=== PATIENT | male | born 2000 | race Caucasian/White ===

== ENCOUNTER 2025-03-08 10:52 | Outpatient (RCR) | payer OTHER, SELFPAY | END 2025-03-14 23:59 | disposition home or self-care (01) | LOC: GPT 10:52 | PROVIDERS: Visit Provider Orthopaedic Surgery Sports Medicine | DX: Z98.890 Other specified postprocedural states (principal) | CPT/HCPCS: 97110; 97140; 97161 ==

== ENCOUNTER 2025-04-14 16:04 | Outpatient (RCR) | payer OTHER, SELFPAY | END 2025-04-14 23:59 | disposition home or self-care (01) | LOC: GPT 16:04 | PROVIDERS: Visit Provider Orthopaedic Surgery Sports Medicine | DX: M23.611 Other spontaneous disruption of anterior cruciate ligament of right knee (principal); M23.303 Other meniscus derangements, unspecified medial meniscus, right knee; M25.561 Pain in right knee; Z48.89 Encounter for other specified surgical aftercare | CPT/HCPCS: 97110; 97112 ==